=== PATIENT | female | born 1940 | race Caucasian/White ===

== ENCOUNTER 2017-07-06 17:47 | Emergency (ER) | payer MEDICARE, BC ==
--- NOTE | 2017-07-06 18:12 | EDM.PDOC ---
<BeanEdson judd - Last Filed: 07/06/17 20:25> ED HPI GENERAL MEDICAL PROBLEM - General Chief Complaint: Cardiovascular Problem Stated Complaint: CHEST PAIN, PALPITATIONS Time Seen by Provider: 07/06/17 19:00 Source of Information: Reports: Patient, Family History Limitations: Reports: No Limitations - History of Present Illness INITIAL COMMENTS - FREE TEXT/NARRATIVE: Patient is a 76 year old woman who has a history of palpitations caused by Hyperthyroidism. She has been having bouts of palpitations for the last 3 weeks and just had a holter monitor put on. She has pain in the left rib cage area that is non exertional in nature and that can be palpated out. She also has a headache but no other complaints. The chest pain worries her. She has had a negative heart cath 10 years ago. 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 below) (Holter monitor.) - Related Data Allergies Allergy/AdvReac Type Severity Reaction Status Date / Time lisinopril Allergy Indigestion Verified 07/06/17 18:55 Home Meds: Home Meds Aspirin [Morenita Chewable Aspirin] 81 mg PO DAILY 08/02/13 [History] Candesartan/Hydrochlorothiazid [Atacand Hct 32-12.5 mg Tab] 0.5 tab PO DAILY [History] Methimazole 5 mg PO DAILY 08/02/13 [History] Metoprolol Succinate [Toprol XL] 50 mg PO BID 08/02/13 [History] Multivitamin [Multi-Vitamin Daily] 1 each PO DAILY 08/02/13 [History] Omeprazole 20 mg PO DAILY 08/02/13 [History] metFORMIN [Glucophage] 500 mg PO BID 08/02/13 [History] Calcium Carbonate/Vitamin D3 [Calcium 600 + Vit D 400 Softgl] 1 each PO BID [History] Cholecalciferol (Vitamin D3) [Vitamin D3] 1,000 unit PO BID 11/10/14 [History] [place]-3 Fatty Acids [[place]-3] 1,000 mg PO BID 11/10/14 [History] Cetirizine [ZyrTEC] 10 mg PO DAILY PRN 10/30/15 [History] Chlorpheniramine Maleate 4 mg PO BID 10/30/15 [History] Sucralfate [Carafate] 1 tab PO QIDACANDBED 10/30/15 [History] Triamcinolone Acetonide [Nasacort] 2 spray NS DAILY 10/30/15 [History] atorvaSTATin [Lipitor] 40 mg PO BEDTIME 10/30/15 [History] ED ROS GENERAL - Review of Systems Review Of Systems: See Below Constitutional: Reports: No Symptoms HEENT: Reports: No Symptoms Respiratory: Reports: No Symptoms Cardiovascular: Reports: Chest Pain (As described in HPI.) Endocrine: Reports: No Symptoms GI/Abdominal: Reports: No Symptoms : Reports: No Symptoms Skin: Reports: Other (Chest wall pain as described in HPI.) Neurological: Reports: No Symptoms Psychiatric: Reports: No Symptoms Hematologic/Lymphatic: Reports: No Symptoms Immunologic: Reports: No Symptoms ED EXAM, GENERAL - Physical Exam Exam: See Below Exam Limited By: No Limitations General Appearance: Alert, WD/WN, No Apparent Distress Eye Exam: Bilateral Eye: EOMI, Normal Fundi, Normal Inspection Ears: Normal External Exam, Normal Canal, Hearing Grossly Normal, Normal TMs Ear Exam: Bilateral Ear: Auricle Normal, Canal Normal, TM normal Nose: Normal Inspection, Normal Mucosa, No Blood Throat/Mouth: Normal Inspection, Normal Lips, Normal Teeth, Normal Gums, Normal Oropharynx, Normal Voice, No Airway Compromise Head: Atraumatic, Normocephalic Neck: Normal Inspection, Supple, Non-Tender, Full Range of Motion Respiratory/Chest: No Respiratory Distress, Lungs Clear, Normal Breath Sounds, No Accessory Muscle Use, Chest Non-Tender, Other (Pain over the left lateral ribs on palpation that reproduces her pain.) Cardiovascular: Normal Peripheral Pulses, Regular Rate, Rhythm, No Edema, No Gallop, No JVD, No Murmur, No Rub GI/Abdominal: Normal Bowel Sounds Back Exam: Normal Inspection, Full Range of Motion, NT Extremities: Normal Inspection, Normal Range of Motion, Non-Tender, Normal Capillary Refill, No Pedal Edema Neurological: Alert, Oriented, CN II-XII Intact, Normal Cognition, Normal Gait, Normal Reflexes, No Motor/Sensory Deficits Psychiatric: Normal Affect, Normal Mood EKG INTERPRETATION Rhythm: NSR Colbert: Normal P-Wave: Present QRS: LBBB ST-T: Normal QT: Normal Comparison: No Change Course - Vital Signs Text/Narrative:: Uneventful ED course. All of her labs and EKG were all normal. She has costochondritis and will be sent home on Prednisone 40 mg po q day for 4 days and tylenol 500 mg po q 4 hours. She will follow up with her PCP at [facility] and get a cardiology consult to go over the Holter Monitor and determine if further testing is indicated. Last Recorded V/S: Last Vital Signs Temp 36.8 C 07/06/17 19:00 Pulse 68 07/06/17 19:42 Resp 18 07/06/17 19:42 BP 139/70 07/06/17 19:42 Pulse Ox 99 07/06/17 19:42 - Orders/Labs/Meds Labs: Laboratory Tests 07/06/17 07/06/17 07/06/17 Range/Units 18:20 18:20 18:20 WBC 11.4 (4.5-12.0) X10-3/uL RBC 4.42 (3.23-5.20) x10(6)uL Hgb 12.6 (11.5-15.5) g/dL Hct 36.7 (30.0-51.3) % MCV 83.0 (80-96) fL MCH 28.5 (27.7-33.6) pg MCHC 34.4 (32.2-35.4) g/dL RDW 14.5 (11.5-15.5) % Plt Count 374 H (125-369) X10(3)uL MPV 8.0 (7.4-10.4) fL Neut % (Auto) 68.4 (46-82) % Lymph % (Auto) 22.2 (13-37) % [place] % (Auto) 7.2 (4-12) % Eos % (Auto) 1 (1.0-5.0) % Baso % (Auto) 1 (0-2) % Neut # (Auto) 7.8 (1.6-8.3) # Lymph # (Auto) 2.5 (0.6-5.0) # [place] # (Auto) 0.8 (0.0-1.3) # Eos # (Auto) 0.2 (0.0-0.8) # Baso # (Auto) 0.1 (0.0-0.2) # Sodium 135 (135-145) mmol/L Potassium 3.3 L (3.5-5.3) mmol/L Chloride 96 L D (100-110) mmol/L Carbon Dioxide 28 (23-29) mmol/L BUN 16 (8-23) mg/dL Creatinine 0.9 (0.6-1.3) mg/dL Est Cr Clr Drug Dosing TNP Estimated GFR (MDRD) > 60 (>60) BUN/Creatinine Ratio 17.8 (9-20) Glucose 174 H (80-116) mg/dL Calcium 9.3 (8.6-10.2) mg/dL Troponin I < 0.01 L (0.02-0.06) NG/ML TSH, Ultra Sensitive (0.4-5.5) nlU/mL 07/06/17 Range/Units 18:20 WBC (4.5-12.0) X10-3/uL RBC (3.23-5.20) x10(6)uL Hgb (11.5-15.5) g/dL Hct (30.0-51.3) % MCV (80-96) fL MCH (27.7-33.6) pg MCHC (32.2-35.4) g/dL RDW (11.5-15.5) % Plt Count (125-369) X10(3)uL MPV (7.4-10.4) fL Neut % (Auto) (46-82) % Lymph % (Auto) (13-37) % [place] % (Auto) (4-12) % Eos % (Auto) (1.0-5.0) % Baso % (Auto) (0-2) % Neut # (Auto) (1.6-8.3) # Lymph # (Auto) (0.6-5.0) # [place] # (Auto) (0.0-1.3) # Eos # (Auto) (0.0-0.8) # Baso # (Auto) (0.0-0.2) # Sodium (135-145) mmol/L Potassium (3.5-5.3) mmol/L Chloride (100-110) mmol/L Carbon Dioxide (23-29) mmol/L BUN (8-23) mg/dL Creatinine (0.6-1.3) mg/dL Est Cr Clr Drug Dosing Estimated GFR (MDRD) (>60) BUN/Creatinine Ratio (9-20) Glucose (80-116) mg/dL Calcium (8.6-10.2) mg/dL Troponin I (0.02-0.06) NG/ML TSH, Ultra Sensitive 3.46 (0.4-5.5) nlU/mL Meds: Medications Discontinued Medications Generic Name Dose Route Start Last Admin Trade Name Freq PRN Reason Stop Dose Admin Prednisone 160 mg 07/06/17 20:07 Prednisone PO 07/06/17 20:08 .STK-MED ONE Departure - Departure Time of Disposition: 20:36 Disposition: Home, Self-Care 01 Condition: Good Clinical Impression: Costochondral chest pain Referrals: Yosvany Beltre MD [Primary Care Provider] - Forms: ED Department Discharge <Cody Abel - Last Filed: 07/08/17 20:07> Past Medical History HEENT History: Reports: Cataract, Impaired Vision Cardiovascular History: Reports: High Cholesterol, Hypertension, SOB on Exertion Respiratory History: Reports: Bronchitis, Recurrent, Pneumonia, Recurrent, Sleep Apnea, SOB Gastrointestinal History: Reports: Cholelithiasis, Diverticulosis, GERD, Hemorrhoids, Irritable Bowel Syndrome Genitourinary History: Reports: None 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: Musculoskeletal History: Reports: Arthritis, Back Pain, Chronic Endocrine/Metabolic History: Reports: Diabetes, Type II, Hyperthyroidism, Obesity/BMI 30+ Hematologic History: Reports: Anemia, Iron Deficiency - Past Surgical History HEENT Surgical History: Reports: Cataract Surgery, Oral Surgery Female Surgical History: Reports: Section, Hysterectomy Musculoskeletal Surgical History: Reports: Knee Replacement Social & Family History - Tobacco Use Smoking Status *Q: Never Smoker - Alcohol Use Days Per Week of Alcohol Use: 0 Number of Drinks Per Day: 0 Total Drinks Per Week: 0 - Recreational Drug Use Recreational Drug Use: No Drug Use in Last 12 Months: No EKG INTERPRETATION EKG Date: 07/06/17 Time: 17:55 Rhythm: NSR Rate (Beats/Min): 71 Colbert: LAD-Left Colbert Deviation P-Wave: Present QRS: Normal ST-T: Normal QT: Normal Comparison: NA - No Prior EKG Course - Vital Signs Text/Narrative:: I have ordered the labs for palpitations, pt was signed out o Dr. Valadez at 7 pm due to shift changes. Last Recorded V/S: Last Vital Signs Temp 36.8 C 07/06/17 19:00 Pulse 68 07/06/17 19:42 Resp 18 07/06/17 19:42 BP 139/70 07/06/17 19:42 Pulse Ox 99 07/06/17 19:42 - Orders/Labs/Meds Labs: Laboratory Tests 07/06/17 07/06/17 07/06/17 Range/Units 18:20 18:20 18:20 WBC 11.4 (4.5-12.0) X10-3/uL RBC 4.42 (3.23-5.20) x10(6)uL Hgb 12.6 (11.5-15.5) g/dL Hct 36.7 (30.0-51.3) % MCV 83.0 (80-96) fL MCH 28.5 (27.7-33.6) pg MCHC 34.4 (32.2-35.4) g/dL RDW 14.5 (11.5-15.5) % Plt Count 374 H (125-369) X10(3)uL MPV 8.0 (7.4-10.4) fL Neut % (Auto) 68.4 (46-82) % Lymph % (Auto) 22.2 (13-37) % [place] % (Auto) 7.2 (4-12) % Eos % (Auto) 1 (1.0-5.0) % Baso % (Auto) 1 (0-2) % Neut # (Auto) 7.8 (1.6-8.3) # Lymph # (Auto) 2.5 (0.6-5.0) # [place] # (Auto) 0.8 (0.0-1.3) # Eos # (Auto) 0.2 (0.0-0.8) # Baso # (Auto) 0.1 (0.0-0.2) # Sodium 135 (135-145) mmol/L Potassium 3.3 L (3.5-5.3) mmol/L Chloride 96 L D (100-110) mmol/L Carbon Dioxide 28 (23-29) mmol/L BUN 16 (8-23) mg/dL Creatinine 0.9 (0.6-1.3) mg/dL Est Cr Clr Drug Dosing TNP Estimated GFR (MDRD) > 60 (>60) BUN/Creatinine Ratio 17.8 (9-20) Glucose 174 H (80-116) mg/dL Calcium 9.3 (8.6-10.2) mg/dL Troponin I < 0.01 L (0.02-0.06) NG/ML TSH, Ultra Sensitive (0.4-5.5) nlU/mL 07/06/ Range/Units 18:20 WBC (4.5-12.0) X10-3/uL RBC (3.23-5.20) x10(6)uL Hgb (11.5-15.5) g/dL Hct (30.0-51.3) % MCV (80-96) fL MCH (27.7-33.6) pg MCHC (32.2-35.4) g/dL RDW (11.5-15.5) % Plt Count (125-369) X10(3)uL MPV (7.4-10.4) fL Neut % (Auto) (46-82) % Lymph % (Auto) (13-37) % [place] % (Auto) (4-12) % Eos % (Auto) (1.0-5.0) % Baso % (Auto) (0-2) % Neut # (Auto) (1.6-8.3) # Lymph # (Auto) (0.6-5.0) # [place] # (Auto) (0.0-1.3) # Eos # (Auto) (0.0-0.8) # Baso # (Auto) (0.0-0.2) # Sodium (135-145) mmol/L Potassium (3.5-5.3) mmol/L Chloride (100-110) mmol/L Carbon Dioxide (23-29) mmol/L BUN (8-23) mg/dL Creatinine (0.6-1.3) mg/dL Est Cr Clr Drug Dosing Estimated GFR (MDRD) (>60) BUN/Creatinine Ratio (9-20) Glucose (80-116) mg/dL Calcium (8.6-10.2) mg/dL Troponin I (0.02-0.06) NG/ML TSH, Ultra Sensitive 3.46 (0.4-5.5) nlU/mL Meds: Medications Discontinued Medications Generic Name Dose Route Start Last Admin Trade Name Freq PRN Reason Stop Dose Admin Prednisone 160 mg 07/06/17 20:07 Prednisone PO 07/06/17 20:08 .STK-MED ONE
[2017-07-06 19:43] VITALS: BP 139/70
[2017-07-06] MEDS ORDERED: predniSONE 20 MG Tab PO ONE (20:07)
== END 2017-07-06 20:38 | disposition home or self-care (01) ==
LOC: FB.ED 17:47
DX: R07.1 Chest pain on breathing (principal); Z79.82 Long term (current) use of aspirin; Z79.899 Other long term (current) drug therapy
CPT/HCPCS: 36415; 80048; 84443; 84484; 85025; 93005; 99285; A9270; 99284

== ENCOUNTER 2017-12-29 17:53 | Emergency (ER) | payer MEDICARE, BC ==
[2017-12-29] MEDS ORDERED: Albuterol/Ipratropium 3.0-0.5 MG/3 ML Neb Soln NEB ONE ×2 (19:04→19:30)
--- NOTE | 2017-12-29 19:09 | EDM.PDOC ---
ED HPI GENERAL MEDICAL PROBLEM - General Chief Complaint: Respiratory Problem Stated Complaint: COUGH,RIBS HURT,FEVER Time Seen by Provider: 12/29/17 18:30 Source of Information: Reports: Patient, Family History Limitations: Reports: No Limitations - History of Present Illness INITIAL COMMENTS - FREE TEXT/NARRATIVE: c/o cough and fever x 2d in clinic yesterday, CBC and CxR done, dx influenza and begun on Tamiflu, alb HFA and benzonatate cough not much helped with meds still temp today no CV hx, just had "complete cardiac w/u" as per daughter who is a PA, cardiac cath neg has not used HFA in past, no prior hx of asthma, does use CPAP at night, slept most of the night last night used alb HFA x 3 today, temp 102 down to 99.4 today after APAP Bilateral Chest Pain Score (Numeric/FACES): 5 - Related Data Allergies Allergy/AdvReac Type Severity Reaction Status Date / Time lisinopril Allergy Indigestion Verified 12/29/17 18:08 Home Meds: Home Meds Aspirin [[place] Chewable Aspirin] 81 mg PO DAILY 08/02/13 [History] Methimazole 5 mg PO DAILY 08/02/13 [History] Metoprolol Succinate [Toprol XL] 50 mg PO BID 08/02/13 [History] Multivitamin [Multi-Vitamin Daily] 1 each PO DAILY 08/02/13 [History] Omeprazole 20 mg PO DAILY 08/02/13 [History] metFORMIN [Glucophage] 500 mg PO BID 08/02/13 [History] Calcium Carbonate/Vitamin D3 [Calcium 600 + Vit D 400 Softgl] 1 each PO BID [History] Cholecalciferol (Vitamin D3) [Vitamin D3] 1,000 unit PO BID 11/10/14 [History] [place]-3 Fatty Acids [[place]-3] 1,000 mg PO BID 11/10/14 [History] Cetirizine [ZyrTEC] 10 mg PO DAILY PRN 10/30/15 [History] Chlorpheniramine Maleate 4 mg PO BID 10/30/15 [History] Triamcinolone Acetonide [Nasacort] 2 spray NS DAILY 10/30/15 [History] atorvaSTATin [Lipitor] 40 mg PO BEDTIME 10/30/15 [History] Albuterol Sulfate [Proventil Hfa] 2 puff PO ASDIRECTED PRN 12/29/17 [History] Albuterol/Ipratropium [DuoNeb 3.0-0.5 MG/3 ML] 3 ml .XX QID #40 neb 12/29/17 [Rx ] Benzonatate [Tessalon [place]] 100 mg PO ASDIRECTED PRN 12/29/17 [History] Codeine/Promethazine [Phenergan with Codeine] 5 ml PO Q6H PRN #240 cup 12/29/17 [Rx] Escitalopram Oxalate [Lexapro] 5 mg PO DAILY 12/29/17 [History] Glimepiride [Amaryl] 1 mg PO DAILY 12/29/17 [History] Hydrochlorothiazide 25 mg PO DAILY 12/29/17 [History] Oseltamivir [Tamiflu] 75 mg PO BID 12/29/17 [History] Potassium Chloride 20 meq PO DAILY #5 tablet.er 12/29/17 [Rx] Ranitidine [Zantac] 150 mg PO BID 12/29/17 [History] amLODIPine Besylate [Norvasc] 5 mg PO DAILY 12/29/17 [History] atorvaSTATin [Lipitor] 40 mg PO BEDTIME 12/29/17 [History] predniSONE [Prednisone] 20 mg PO DAILY #9 tablet 12/29/17 [Rx] Past Medical History HEENT History: Reports: Cataract, Impaired Vision Cardiovascular History: Reports: High Cholesterol, Hypertension, SOB on Exertion Respiratory History: Reports: Bronchitis, Recurrent, Pneumonia, Recurrent, Sleep Apnea, SOB Gastrointestinal History: Reports: Cholelithiasis, Diverticulosis, GERD, Hemorrhoids, Irritable Bowel Syndrome Genitourinary History: Reports: 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: Musculoskeletal History: Reports: Arthritis, Back Pain, Chronic Endocrine/Metabolic History: Reports: Diabetes, Type II, Hyperthyroidism, Obesity/BMI 30+ Hematologic History: Reports: Anemia, Iron Deficiency - Infectious Disease History Infectious Disease History: Reports: Chicken Pox, Measles, Mumps, Shingles - Past Surgical History HEENT Surgical History: Reports: Cataract Surgery, Oral Surgery Female Surgical History: Reports: Section, Hysterectomy Musculoskeletal Surgical History: Reports: Knee Replacement Social & Family History - Family History Family Medical History: Noncontributory - Tobacco Use Smoking Status *Q: Never Smoker Second Hand Smoke Exposure: No - Caffeine Use Caffeine Use: Reports: None - Alcohol Use Days Per Week of Alcohol Use: 0 Number of Drinks Per Day: 0 Total Drinks Per Week: 0 - Recreational Drug Use Recreational Drug Use: No Drug Use in Last 12 Months: No ED ROS GENERAL - Review of Systems Review Of Systems: See Below Constitutional: Reports: Fever, Fatigue HEENT: Reports: No Symptoms Respiratory: Reports: Wheezing, Cough Cardiovascular: Reports: No Symptoms Endocrine: Reports: No Symptoms GI/Abdominal: Reports: No Symptoms : Reports: No Symptoms Musculoskeletal: Reports: No Symptoms Skin: Reports: No Symptoms Neurological: Reports: No Symptoms Psychiatric: Reports: No Symptoms Hematologic/Lymphatic: Reports: No Symptoms Immunologic: Reports: No Symptoms ED EXAM, GENERAL - Physical Exam Exam: See Below Exam Limited By: No Limitations General Appearance: Alert, WD/WN, No Apparent Distress, Other (cheerful, good spirits, frequent dry cough, does have wheezing) Eye Exam: Bilateral Eye: Normal Inspection Ears: Normal External Exam, Normal Canal, Hearing Grossly Normal, Normal TMs Nose: Normal Inspection, Normal Mucosa, No Blood Throat/Mouth: Normal Inspection, Normal Lips, Normal Teeth, Normal Gums, Normal Oropharynx, Normal Voice, No Airway Compromise Head: Atraumatic, Normocephalic Neck: Normal Inspection, Supple, Non-Tender, Full Range of Motion Respiratory/Chest: Other (fair AE, b/l exp wheezes throughout, symmetric, slight inc'd exp phase, no rales) GI/Abdominal: Soft, Non-Tender, No Distention Back Exam: Normal Inspection, Full Range of Motion, NT Extremities: Normal Inspection, Normal Range of Motion, Non-Tender, No Pedal Edema Neurological: Alert, Oriented, CN II-XII Intact, Normal Cognition, No Motor/ Sensory Deficits Psychiatric: Normal Affect, Normal Mood Skin Exam: Warm, Dry, Intact, Normal Color, No Rash Lymphatic: No Adenopathy Course - Vital Signs Last Recorded V/S: Last Vital Signs Temp 37.4 C 12/29/17 19:25 Pulse 70 12/29/17 19:25 Resp 20 12/29/17 19:25 BP 112/63 12/29/17 19:25 Pulse Ox 97 12/29/17 19:25 - Orders/Labs/Meds Orders: Active Orders 24 hr Category Date Time Status RT Aerosol Therapy [RC] ASDIRECTED Care 12/29/17 19:05 Active RT Aerosol Therapy [RC] ASDIRECTED Care 12/29/17 19:30 Active Chest 2V [CR] Stat Exams 12/29/17 18:17 Taken INFLUENZA A+B AG SCREEN [RM] Stat Lab 12/29/17 18:45 Ordered Labs: Laboratory Tests 12/29/17 12/29/17 12/29/17 Range/Units 18:55 18:55 18:55 WBC 6.4 (4.5-12.0) X10-3/uL RBC 4.47 (3.23-5.20) x10(6)uL Hgb 12.6 (11.5-15.5) g/dL Hct 37.7 (30.0-51.3) % MCV 84.3 (80-96) fL MCH 28.1 (27.7-33.6) pg MCHC 33.3 (32.2-35.4) g/dL RDW 14.4 (11.5-15.5) % Plt Count 268 (125-369) X10(3)uL MPV 8.2 (7.4-10.4) fL Neut % (Auto) 65.2 (46-82) % Lymph % (Auto) 19.2 (13-37) % [place] % (Auto) 12.8 H (4-12) % Eos % (Auto) 2 (1.0-5.0) % Baso % (Auto) 1 (0-2) % Neut # (Auto) 4.3 (1.6-8.3) # Lymph # (Auto) 1.2 (0.6-5.0) # [place] # (Auto) 0.8 (0.0-1.3) # Eos # (Auto) 0.1 (0.0-0.8) # Baso # (Auto) 0.0 (0.0-0.2) # Sodium 134 L (135-145) mmol/L Potassium 3.3 L (3.5-5.3) mmol/L Chloride 96 L (100-110) mmol/L Carbon Dioxide 28 (21-32) mmol/L BUN 13 (7-18) mg/dL Creatinine 1.0 (0.55-1.02) mg/dL Est Cr Clr Drug Dosing 34.38 mL/min Estimated GFR (MDRD) 54 L (>60) BUN/Creatinine Ratio 13.0 (9-20) Glucose 138 H (80-116) mg/dL Calcium 9.1 (8.6-10.2) mg/dL Total Bilirubin 0.5 (0.1-1.3) mg/dL AST 29 H (5-25) IU/L ALT 32 (12-36) U/L Alkaline Phosphatase 86 (56-112) IU/L Troponin I < 0.017 L (<0.017-0.056) ng/mL C-Reactive Protein 2.5 H (0.5-0.9) mg/dL NT-Pro-B Natriuret Pep 195 (<=450) pg/mL Total Protein 8.1 H (6.0-8.0) g/dL Albumin 3.6 (3.2-4.6) g/dL Globulin 4.5 g/dL Albumin/Globulin Ratio 0.8 Meds: Medications Discontinued Medications Generic Name Dose Route Start Last Admin Trade Name Freq PRN Reason Stop Dose Admin Albuterol/Ipratropium 3 ml 12/29/17 19:04 12/29/17 19:07 Duoneb 3.0-0.5 Mg/3 Ml NEB 12/29/17 19:05 3 ml ONETIME ONE Administration Albuterol/Ipratropium 3 ml 12/29/17 19:30 12/29/17 19:34 Duoneb 3.0-0.5 Mg/3 Ml NEB 12/29/17 19:31 3 ml ONETIME ONE Administration Methylprednisolone Sodium Succinate 125 mg 12/29/17 20:15 12/29/17 20:19 Solu-Medrol IM 12/29/17 20:16 125 mg ONETIME ONE Administration - Re-Assessments/Exams Free Text/Narrative Re-Assessment/Exam: 12/29/17 20:27 wheezing improved some after Duoneb x 2 altho still had some wheezing has inc'd mono's 12.8 c/w viral infection with bronchospasm, flu tests are neg CxR is neg has low potassium CRP 2.5 c/w infectious etiology trop and BNP are neg Departure - Departure Time of Disposition: 20:35 Disposition: Home, Self-Care 01 Condition: Good Clinical Impression: Flu-like symptoms, Bronchospasm, acute - Discharge Information Prescriptions: Albuterol/Ipratropium [DuoNeb 3.0-0.5 MG/3 ML] 3 ml .XX QID #40 neb Codeine/Promethazine [Phenergan with Codeine] 5 ml PO Q6H PRN #240 cup PRN Reason: Cough Potassium Chloride 20 meq PO DAILY #5 tablet.er predniSONE [Prednisone] 20 mg PO DAILY #9 tablet Instructions: Bronchospasm, Adult, [id number], Upper Respiratory Infection, Adult, [id number] Referrals: Yosvany Beltre MD [Primary Care Provider] - Forms: ED Department Discharge Additional Instructions: In place of albuterol inhaler, use Duoneb unit dose 4 times a day for 5-7 days, longer if needed. To open airways, take prednisone 20 mg 2 tabs daily for 2 days, then 1 tab daily for 5 days. To replace potassium, take potassium 20 meq 1 tab daily for 5 days. For cough, instead of benzonatate take promethazine with codeine 1-2 tsps every 6 hours as needed. Get adequate rest. Use good handwashing. Maintain fluids. See your doctor in 3-5 days. Return to ED if you are feeling worse. - My Orders Last 24 Hours: My Active Orders 12/29/17 18:17 Chest 2V [CR] Stat 12/29/17 18:45 INFLUENZA A+B AG SCREEN [RM] Stat 12/29/17 19:05 RT Aerosol Therapy [RC] ASDIRECTED 12/29/17 19:30 RT Aerosol Therapy [RC] ASDIRECTED - Assessment/Plan Last 24 Hours: My Active Orders 12/29/17 18:17 Chest 2V [CR] Stat 12/29/17 18:45 INFLUENZA A+B AG SCREEN [RM] Stat 12/29/17 19:05 RT Aerosol Therapy [RC] ASDIRECTED 12/29/17 19:30 RT Aerosol Therapy [RC] ASDIRECTED
[2017-12-29] MEDS ORDERED: methylPREDNISolone Sodium Succinate 125 MG/2 ML SDV IM ONE (20:15)
[2017-12-29 20:56] VITALS: BP 107/73
--- NOTE | 2018-01-01 13:12 | CR ---
INDICATION: Cough, fever, question pneumonia. CHEST: PA and lateral views of the chest 12/29/2017 were compared with 2015 and 08/23/2014, again revealing evidence of exogenous obesity. The heart is enlarged with LVE. The aorta is only minimally tortuous. Degenerative changes are noted in the thoracic spine with demineralization suggested, compatible with osteoporosis - correlate clinically. A definite active infiltrate or effusion was not identified. IMPRESSION: 1. Progressive ASHD with cardiomegaly. 2. Degenerative changes and probable osteoporosis thoracic spine. 3. Exogenous obesity. 4. No definite acute process. MTDD
== END 2017-12-29 20:53 | disposition home or self-care (01) ==
LOC: FB.ED 17:53
DX: J98.01 Acute bronchospasm (principal); E78.00 Pure hypercholesterolemia, unspecified; I10 Essential (primary) hypertension; E11.9 Type 2 diabetes mellitus without complications; E05.90 Thyrotoxicosis, unspecified without thyrotoxic crisis or storm; Z88.8 Allergy status to other drugs, medicaments and biological substances; Z79.82 Long term (current) use of aspirin; Z79.899 Other long term (current) drug therapy; Z79.84 Long term (current) use of oral hypoglycemic drugs
CPT/HCPCS: 36415; 71046; 80053; 83880; 84484; 85025; 86140; 87804; 87804-59; 94640; 96372; 99283; J2930; J7620

== ENCOUNTER 2019-10-14 08:13 | Day surgery (SDC) | payer MEDICARE, BC ==
[2019-10-14] MEDS ORDERED: Lidocaine 2% 5 ML SDV INJECT ONE (08:14)
[2019-10-14] MEDS ORDERED: Propofol 200 MG/20 ML SDV IV ONE (08:14)
[2019-10-14] MEDS ORDERED: Lactated Ringers 1,000 ML IV SCH (08:45)
[2019-10-14] MEDS ORDERED: Sodium Chloride 0.9% 10 ML Syringe FLUSH PRN (08:45)
--- NOTE | 2019-10-14 09:05 | PCM.PN ---
- General Info Date of Service: 10/14/19 - Review of Systems Systems Review Comment:: 79 y/o female here for EGD and Colonoscopy. She has been having symptoms of upper abdominal pain as well as diarrhea over the past 2 months. Her recent H and P is reviewed and no significant changes are noted. I have discussed the proposed EGD and Colonoscopy with the patient. She agrees to proceed accepting risks. - Patient Data Vitals - Most Recent: Last Vital Signs Temp 98.5 F 10/14/19 08:40 Pulse 62 10/14/19 08:40 Resp 16 10/14/19 08:40 BP 147/73 H 10/14/19 08:40 Pulse Ox 93 L 10/14/19 08:40 Weight - Most Recent: 222 lb 12.4 oz Med Orders - Current: Current Medications Lactated Ringer's (Ringers, Lactated) 1,000 mls @ 125 mls/hr IV ASDIRECTED JAROD Sodium Chloride (Saline Flush) 10 ml FLUSH ASDIRECTED PRN PRN Reason: Keep Vein Open Sepsis Event Note - Focused Exam Vital Signs: Vital Signs Temp Pulse Resp BP Pulse Ox 10/14/19 08:40 98.5 F 62 16 147/73 H 93 L Date Exam was Performed: 10/14/19 Time Exam was Performed: 09:02 - Problem List Review Problem List Initiated/Reviewed/Updated: Yes - My Orders Last 24 Hours: My Active Orders 10/14/19 08:45 Patient Status [ADT] Routine Blood Glucose Check, Bedside [RC] ONETIME Patient to Empty Bladder [RC] ASDIRECTED Verify Patient Consent Obtain [RC] ASDIRECTED Lactated Ringers [Ringers, Lactated] 1,000 ml IV ASDIRECTED Sodium Chloride 0.9% [Saline Flush] 10 ml FLUSH ASDIRECTED PRN Peripheral IV Insertion Adult [OM.PC] Routine 10/14/19 Breakfast Nothing Per Oral Diet [DIET] - Assessment Assessment:: Upper Abdominal Pain Diarrhea - Plan Plan:: EGD and Colonoscopy
--- NOTE | 2019-10-14 10:06 | PCM.OPNOTE ---
- General Post-Op/Procedure Note Date of Surgery/Procedure: 10/14/19 Operative Procedure(s): EGD with Biopsy and Colonoscopy with Biopsy Findings: Hiatal hernia but otherwise normal appearing Upper Endoscopy Mild Sigmoid Diverticulosis but otherwise normal Colonoscopy Pre Op Diagnosis: Abdominal Pain. Diarrhea Post-Op Diagnosis: Hiatal Hernia. Sigmoid Diverticulosis [place]est[place] [facility] [place]geon: Pavel Vásquez Pathology: Biopsies of Stomach and Duodenum Biopsies of Terminal Ileum and Colon EBL in mLs: 4 Complications: None Condition: Good
[2019-10-14 11:41] VITALS: BP 155/66; PULSE 67
--- NOTE | 2019-10-14 13:13 | OR ---
DATE OF OPERATION: 10/14/2019 SURGEON: Pavel Vásquez MD PREOPERATIVE DIAGNOSES: 1. Abdominal pain. 2. Diarrhea. POSTOPERATIVE DIAGNOSES: 1. Hiatal hernia. 2. Sigmoid diverticulosis. OPERATIONS PERFORMED: Esophagogastroduodenoscopy with biopsy and colonoscopy with biopsy. INDICATIONS FOR SURGERY: A 79-year-old female who has been having symptoms of intermittent severe upper abdominal pain as well as some diarrhea in the morning for the past 2 months. She has a known history of colon cancer in her mother. She is referred for upper and lower endoscopy. FINDINGS: On upper endoscopy, no visible signs of acute inflammation or ulcers were seen. The patient does have widening of the GE junction consistent with a hiatal hernia, but the Z-line is distinct. There is no visible acute inflammation or irregularity of the Z-line. The esophagus, stomach, and duodenum otherwise appear normal. On colonoscopy, no visible signs of inflammation are seen. The patient does have a mild degree of sigmoid diverticulosis, but this does not appear to be acutely inflamed or otherwise complicated. The remainder of the colon as well as the terminal ileum also otherwise appear normal. PROCEDURE IN DETAIL: The patient was taken to the operating room. Her throat was topically anesthetized, and with her in the left lateral decubitus position, the Olympus gastroscope was advanced through a mouth guard into the oral cavity. Under direct visualization, the scope was advanced down into the esophagus and then through the esophagus down into the stomach and on into the duodenum where examination to the third portion was performed. Careful examination of the duodenum showed it to appear normal. Random biopsies were taken of the duodenum because of her history of diarrhea. The scope was withdrawn back into the stomach, where full examination including retroflexed examination of the fundus was performed. Random biopsies of the antrum were taken to rule out H. pylori. After the GE junction had been carefully examined, the scope was withdrawn re- examining the esophagus and the scope was removed. Attention was turned to colonoscopy. Digital rectal exam was performed showing no rectal masses. The Olympus colonoscope was inserted into the rectum. Retroflexed examination of the rectal canal was performed. The scope was then carefully advanced under direct visualization through the entire length of the colon until the cecum was reached. Cecal acquisition was confirmed by noting normal internal cecal anatomy including the appendiceal orifice as well as ileocecal valve. The ileocecal valve was cannulated and the terminal ileum was examined and appeared normal. Random biopsies of the terminal ileum were taken. The scope was withdrawn back into the colon and then slowly withdrawn, sequentially re-examining the colonic segments. During withdrawal of the scope, random biopsies of the right and also left colon were taken to rule out microscopic colitis or other reasons for her diarrhea. After the colon and rectum had been completely examined, there was no sign of any complication. The scope was removed, and the patient was taken from the operating room in satisfactory condition. ESTIMATED BLOOD LOSS: 4 mL. COMPLICATIONS: None. PROGNOSIS: Good. /[id number] KETURAH/HERNAN
== END 2019-10-14 11:00 | disposition home or self-care (01) ==
LOC: FB.SDS 08:13
PROVIDERS: ATTEND Surgery
DX: K29.50 Unspecified chronic gastritis without bleeding (principal); K44.9 Diaphragmatic hernia without obstruction or gangrene; K57.30 Diverticulosis of large intestine without perforation or abscess without bleeding; I10 Essential (primary) hypertension; E11.9 Type 2 diabetes mellitus without complications; E78.00 Pure hypercholesterolemia, unspecified; E78.5 Hyperlipidemia, unspecified; K21.9 Gastro-esophageal reflux disease without esophagitis; E02 Subclinical iodine-deficiency hypothyroidism; G47.33 Obstructive sleep apnea (adult) (pediatric); M72.0 Palmar fascial fibromatosis [Dupuytren]; M17.0 Bilateral primary osteoarthritis of knee; E66.9 Obesity, unspecified; Z68.41 Body mass index [BMI] 40.0-44.9, adult; Z79.84 Long term (current) use of oral hypoglycemic drugs; Z79.82 Long term (current) use of aspirin; Z79.899 Other long term (current) drug therapy; Z91.048 Other nonmedicinal substance allergy status; Z88.8 Allergy status to other drugs, medicaments and biological substances; Z80.0 Family history of malignant neoplasm of digestive organs; Z99.89 Dependence on other enabling machines and devices
CPT/HCPCS: 00813; 43239; 45380; 82962; 88305; 88342; J2001; J2704; J7120

== ENCOUNTER 2021-02-01 09:03 | Day surgery (SDC) | payer MEDICARE, BC ==
[2021-02-01] MEDS ORDERED: Propofol 200 MG/20 ML SDV IV ONE (09:04)
[2021-02-01] MEDS ORDERED: Lactated Ringers 1,000 ML IV SCH (09:30)
[2021-02-01] MEDS ORDERED: Sodium Chloride 0.9% 10 ML Syringe FLUSH PRN (09:30)
--- NOTE | 2021-02-01 11:45 | PCM.PN ---
- General Info Date of Service: 02/01/21 - Review of Systems Systems Review Comment:: 80 y/o female with family history of colon cancer and polyps as well as recent personal history of change in bowel habits with constipation here for colonoscopy. She is medically stable to proceed. Her recent H and P is reviewed and no significant changes are noted. She agrees to proceed accepting risks. - Patient Data Vitals - Most Recent: Last Vital Signs Temp 98.4 F 02/01/21 09:10 Pulse 58 L 02/01/21 09:10 Resp 20 02/01/21 09:10 BP 151/65 H 02/01/21 09:10 Pulse Ox 95 02/01/21 09:10 Weight - Most Recent: 238 lb 12.1 oz Lab Results Last 24 Hours: Laboratory Results - last 24 hr 02/01/21 Range/Units 09:41 POC Glucose 159 H (80-116) mg/dL Med Orders - Current: Current Medications Lactated Ringer's (Ringers, Lactated) 1,000 mls @ 999 mls/hr IV .BOLUS JAROD Last Admin: 02/01/21 09:55 Dose: 999 mls/hr Documented by: Sodium Chloride (Sodium Chloride 0.9% 10 Ml Syringe) 10 ml FLUSH ASDIRECTED PRN PRN Reason: Keep Vein Open - Patient Data Lab Results Last 24 hrs: Laboratory Results - last 24 hr 02/01/21 Range/Units 09:41 POC Glucose 159 H (80-116) mg/dL Sepsis Event Note - Focused Exam Vital Signs: Vital Signs Temp Pulse Resp BP Pulse Ox 02/01/21 09:10 98.4 F 58 L 20 151/65 H 95 - Problem List Review Problem List Initiated/Reviewed/Updated: Yes - My Orders Last 24 Hours: My Active Orders 02/01/21 09:30 Patient Status [ADT] Routine Blood Glucose Check, Bedside [RC] ONETIME Patient to Empty Bladder [RC] ASDIRECTED Verify Patient Consent Obtain [RC] ASDIRECTED Lactated Ringers [Ringers, Lactated] 1,000 ml IV .BOLUS Sodium Chloride 0.9% [Saline Flush] 10 ml FLUSH ASDIRECTED PRN Peripheral IV Insertion Adult [OM.PC] Routine 02/01/21 Dinner Nothing Per Oral Diet [DIET] - Assessment Assessment:: Family History of colon cancer Change in bowel habits - Plan Plan:: Colonoscopy
--- NOTE | 2021-02-01 12:28 | PCM.OPNOTE ---
- General Post-Op/Procedure Note Date of Surgery/Procedure: 02/01/21 Operative Procedure(s): Colonoscopy with Polypectomy Findings: Small Descending colon polyp - colon otherwise normal Pre Op Diagnosis: Family History of colon cancer. Change in bowel habits Post-Op Diagnosis: Colon polyp Anesthesia Technique: MAC Primary Surgeon: Pavel Vásquez Pathology: Colon Polyp EBL in mLs: 0 Complications: None Condition: Good
--- NOTE | 2021-02-01 13:38 | OR ---
DATE OF OPERATION: 02/01/2021 SURGEON: Pavel Vásquez MD PREOPERATIVE DIAGNOSIS: Family history of colon cancer, change in bowel pattern. POSTOPERATIVE DIAGNOSIS: Colon polyp. OPERATION PERFORMED: Colonoscopy with polypectomy. INDICATIONS FOR SURGERY: This 80-year-old female has a known family history of colon cancer. She has also noted a change in her bowel pattern with increasing constipation recently. FINDINGS: The patient has a single polyp in the descending colon 40 cm from the anal verge. This was a sessile polyp, 5 mm in size. The remainder of the colon and rectum appeared normal. PROCEDURE IN DETAIL: The patient was taken to the procedure room. She was given intravenous sedation, and with her in the left lateral decubitus position, digital rectal exam was performed showing no rectal masses. The Olympus colonoscope was inserted into the rectum. Retroflexed examination of the rectal canal was performed. The scope was then advanced to the descending colon where the above-described polyp was identified. This was removed with a cautery snare and retrieved. The scope was then further advanced to the cecum. Cecal acquisition was confirmed by noting normal internal cecal anatomy including the appendiceal orifice and the ileocecal valve. After examining the cecum, the scope was slowly withdrawn sequentially re-examining the colonic segments until the entire colon and rectum had been fully examined. The scope was removed, and the patient was taken from the procedure room in satisfactory condition. ESTIMATED BLOOD LOSS: 0. COMPLICATIONS: None. PROGNOSIS: Good. /[id number] KETURAH/HERNAN
[2021-02-01 14:24] VITALS: BP 151/62; PULSE 58
== END 2021-02-01 13:30 | disposition home or self-care (01) ==
LOC: FB.SDS 09:03
PROVIDERS: ATTEND Surgery
DX: K63.5 Polyp of colon (principal); M81.0 Age-related osteoporosis without current pathological fracture; G47.33 Obstructive sleep apnea (adult) (pediatric); E11.69 Type 2 diabetes mellitus with other specified complication; E78.00 Pure hypercholesterolemia, unspecified; I10 Essential (primary) hypertension; Z79.84 Long term (current) use of oral hypoglycemic drugs; E05.80 Other thyrotoxicosis without thyrotoxic crisis or storm; R05 Cough; G89.29 Other chronic pain; Z80.0 Family history of malignant neoplasm of digestive organs; Z79.899 Other long term (current) drug therapy; Z88.8 Allergy status to other drugs, medicaments and biological substances; Z91.048 Other nonmedicinal substance allergy status; Z98.890 Other specified postprocedural states; Z90.49 Acquired absence of other specified parts of digestive tract
CPT/HCPCS: 00812-QZ; 82947; 88305; J2704; J7120

== ENCOUNTER 2021-11-07 09:35 | Emergency (ER) | payer MEDICARE, BC ==
[2021-11-07 17:51] VITALS: BP 161/59; PULSE 72
== END 2021-11-07 12:45 | disposition home or self-care (01) ==
LOC: FB.ED 09:35
DX: S20.211A Contusion of right front wall of thorax, initial encounter (principal); E78.00 Pure hypercholesterolemia, unspecified; I10 Essential (primary) hypertension; K21.9 Gastro-esophageal reflux disease without esophagitis; E11.9 Type 2 diabetes mellitus without complications; E05.90 Thyrotoxicosis, unspecified without thyrotoxic crisis or storm; E66.9 Obesity, unspecified; Z68.30 Body mass index [BMI] 30.0-30.9, adult; Z91.048 Other nonmedicinal substance allergy status; Z88.8 Allergy status to other drugs, medicaments and biological substances; Z79.82 Long term (current) use of aspirin; Z79.899 Other long term (current) drug therapy; W01.0XXA Fall on same level from slipping, tripping and stumbling without subsequent striking against object, initial encounter
CPT/HCPCS: 71101-LT; 99283

== ENCOUNTER 2022-01-08 02:47 | Emergency (ER) | payer MEDICARE, BC ==
[2022-01-08] MEDS: Nitroglycerin 0.4 MG Tab.SL SL PRN ×2 (03:18→03:55)
[2022-01-08] MEDS ORDERED: Sodium Chloride 0.9% 1,000 ML IV ONE (03:23)
[2022-01-08] MEDS ORDERED: Magnesium Sulfate/Water 2 GM in Premix Bag 1 BAG IV ONE (03:44)
[2022-01-08 03:56] VITALS: BP 157/79
[2022-01-08 03:59] VITALS: PULSE 71
[2022-01-08 04:10] LABS: CORONAVIRUS COVID-19 NAA NEGATIVE (NEGATIVE)
[2022-01-08] MEDS ORDERED: Iopamidol 755 Mg/ML 75 ML Bottle IV ONE (04:35)
[2022-01-08] MEDS ORDERED: Acetaminophen 500 MG Tab PO ONE (07:13)
[2022-01-08] MEDS ORDERED: Ketorolac 30 MG/ML SDV IVPUSH ONE (07:13)
== END 2022-01-08 07:28 | disposition other institution (70) ==
LOC: FB.ED 02:47
DX: R07.9 Chest pain, unspecified (principal); R79.1 Abnormal coagulation profile; R09.02 Hypoxemia; R91.8 Other nonspecific abnormal finding of lung field; E78.00 Pure hypercholesterolemia, unspecified; I10 Essential (primary) hypertension; E11.9 Type 2 diabetes mellitus without complications; E66.9 Obesity, unspecified; Z68.41 Body mass index [BMI] 40.0-44.9, adult; Z90.49 Acquired absence of other specified parts of digestive tract; Z20.822 Contact with and (suspected) exposure to COVID-19; Z79.899 Other long term (current) drug therapy; Z79.82 Long term (current) use of aspirin; Z88.8 Allergy status to other drugs, medicaments and biological substances
CPT/HCPCS: 0241U; 36415; 71045; 71275; 80053; 81001; 83735; 83880; 84484; 85025; 85379; 85610; 86140; 93005; 93010; 96374; 96375; 99283; 99285-25; A9270-GY; J1885; J3475; J7030; Q9967